=== PATIENT | female | born 1975 | race Caucasian/White ===

== ENCOUNTER 2019-05-27 10:46 | Emergency (ER) | payer OTHER, SELFPAY ==
[2019-05-27 11:16] VITALS: BP 98/72; PULSE 92; RESP 18; TEMP 37.6; O2SAT 99
--- NOTE | 2019-05-27 11:28 | ED.DENTAL ---
HPI - Dental/Oral General Chief complaint: Dental/Oral Stated complaint: tooth pain Time Seen by Provider: 05/27/19 11:28 Source: patient and RN notes reviewed History of Present Illness HPI Narrative: Patient is a 43-year-old female that presents the urgent care with complaints of dental pain for the last 2 to 3 days and upper right facial swelling. Patient states she broke a tooth 2 days ago and is now having increased pain and woke up this morning with the facial swelling. Patient states that she has poor dental hygiene and has not seen a dentist for some time. Patient denies any nausea or vomiting. Patient has been using ibuprofen and warm salt water gargles. No other acute complaints. No acute distress noted. Patient read the plan of care. Related Data Allergies Allergy/AdvReac Type Severity Reaction Status Date / Time No Known Allergies Allergy Verified 05/27/19 11:14 Review of Systems Review of Systems: Narrative: CONSTITUTIONAL: Denies fever, chills, or sweats. EYES: Denies visual changes, redness, or discharge. ENT: Denies rhinorrhea, congestion, sore throat, or otalgia. Reports of upper right dental pain and facial swelling CARDIOVASCULAR: Denies chest pain, palpitations, or edema. RESPIRATORY: Denies cough or dyspnea. GASTROINTESTINAL: Denies abdominal pain, nausea, vomiting, or diarrhea. GENITOURINARY: Denies dysuria or hematuria. SKIN: Denies rash or itching. MUSCULOSKELETAL: Denies back pain, joint pain, or myalgia. NEUROLOGIC: Denies headache, numbness, or weakness. All other systems reviewed are negative, except as documented in HPI. PMFSH Comments At the time of my signature, I reviewed and agree with the nursing past medical, surgical, social, and family history. There is no relevant family history pertinent to the patient complaint. Exam Narrative: Exam Narrative: GENERAL: This is a well-nourished, well-developed patient, in no apparent distress. HEAD: normocephalic, atraumatic. EYES: PERRL. Sclera clear/white. Vision is grossly intact. EARS: External ears normal NOSE: External nose normal with no obvious nasal discharge THROAT: Mucous membranes moist, posterior pharynx clear. DENTAL: Multiple caries and poor oral hygiene. Upper right second premolar completely avulsed at the gumline with moderate erythema and mild edema surrounding the right upper quadrant. Mild to moderate right sided facial swelling NECK: Neck supple CARDIOVASCULAR: Regular rate and rhythm without murmurs, gallops, or rubs. RESPIRATORY: Clear to auscultation. Breath sounds equal bilaterally. No wheezes, rales, or rhonchi. SKIN: warm, intact with no suspicious lesions or rash, good texture and turgor. NEURO: awake, alert, and oriented to person, place and time. There were no obvious focal neurologic abnormalities. EXTREMITIES: No clubbing, cyanosis, or edema. Course Vital Signs Vital signs: Vital Signs Temperature 99.7 F H 05/27/19 11:16 Pulse Rate 92 05/27/19 11:16 Respiratory Rate 18 05/27/19 11:16 Blood Pressure 98/72 L 05/27/19 11:16 Pulse Oximetry 99 05/27/19 11:16 Temperature 99.7 F H 05/27/19 11:16 Pulse Rate 92 05/27/19 11:16 Respiratory Rate 18 05/27/19 11:16 Blood Pressure 98/72 L 05/27/19 11:16 Pulse Oximetry 99 05/27/19 11:16 Reviewed MDM - Dental/Oral MDM Narrative Medical decision making narrative: Advised the patient to complete oral antibiotic regimen as prescribed. Make sure to eat and drink with the medication. Use ibuprofen as needed for pain. May use ice or heat to the area as needed for comfort. Avoid smoking and sucking through a straw. Patient should follow-up with a dentist within 1 week. Follow-up with PCP within 2 to 5 days or for worsening symptoms or failure to improve. Differential Diagnosis Differential diagnosis: Likely gingival abscess, toothache, dental abscess, fracture of tooth and aphthous ulcer Critical Care Time Critical Care Time Critical Care Time
== END 2019-05-27 12:01 | disposition home or self-care (01) ==
PROVIDERS: Emergency Provider Nurse Practitioner Family
DX: K04.7 Periapical abscess without sinus (principal); K02.9 Dental caries, unspecified
CPT/HCPCS: 99203; G0463